=== PATIENT | male | born 1965 | race Caucasian/White ===

== ENCOUNTER 2016-12-30 14:05 | Emergency (ER) | payer BC ==
[2016-12-30] MEDS ORDERED: Sodium Chloride 0.9% 10 ML Syringe FLUSH PRN (14:18)
[2016-12-30] MEDS ORDERED: HYDROmorphone 1 MG/ML Syringe IVPUSH ONE (14:20)
[2016-12-30] MEDS ORDERED: Sodium Chloride 0.9% 1,000 ML IV ONE (14:20)
[2016-12-30] MEDS ORDERED: Ondansetron 4 MG/2 ML SDV IVPUSH ONE (14:20)
[2016-12-30 15:01] LABS: CHLORIDE,CL 101 mmol/L (98-107); SODIUM,NA 138 mmol/L (136-145)
[2016-12-30] MEDS ORDERED: Ertapenem 1 GM in Sodium Chloride 0.9% 100 ML IV ONE (16:35)
[2016-12-30 20:28] VITALS: BP 112/80
--- NOTE | 2017-01-02 09:42 | ER ---
Date of Service: 12/30/2016 HISTORY: Romero presents to the emergency room from [facility] with complaints of right lower quadrant abdominal pain. The patient states that he began experiencing this discomfort earlier today. He states that his appetite has been poor. He has vomited and has been quite nauseated. He was seen at [facility] by Paul Spaulding. At that facility, they did do a CBC, and the patient was found to have approximately 24,000 white count. The patient was subsequently sent to the emergency room for further evaluation and care. PAST MEDICAL HISTORY: 1. Hypertrophic obstructive cardiomyopathy. 2. Hypertension. 3. Dyslipidemia. MEDICATIONS: 1. Lipitor 10 mg at bedtime. 2. Toprol-XL 25 mg p.o. b.i.d. 3. Aspirin 81 mg daily. ALLERGIES: NKDA. REVIEW OF SYSTEMS: General: No fever, but the patient states that he does feel somewhat chilled. HEENT: No sore throat, rhinorrhea, or congestion. Respiratory: No shortness breath. Cardiac: Denies any substernal chest pain. No jaw, arm, neck, or back pain. GI: Please see history of present illness. Again, he complains of right lower quadrant abdominal pain, nausea and vomiting. Denies any melena, hematochezia, or hematemesis. : Denies any dysuria. Musculoskeletal: No myalgias or arthralgias. Neurologic: No fainting, blackouts, or lightheadedness. PHYSICAL EXAMINATION: General: This is a 51-year-old male patient. No acute distress. Vital Signs: Temperature is 37.6, heart rate is 68, blood pressure is 147/52, respiratory rate 16, O2 saturations 96%. Skin: Warm, pink, and dry. HEENT: Head is normocephalic and atraumatic. Mouth, oral mucosa is moist. Lungs: Clear to auscultation. Heart: Regular rate and rhythm. Normal S1, S2. No S3, S4, murmurs, clicks, or rubs. Abdomen: Soft. Tender in the right lower quadrant. He does have some mild guarding and rebound tenderness. There are no masses noted. There is no hepatosplenomegaly noted. Extremities: Without edema. His obturator sign is positive. Neurologic: Cranial nerves 2 through 12 are intact. His speech is fluent. His gait is within normal limits. LABORATORY DATA: PT is 10.9, INR is 1.0. CBC; I do not have the results of his CBC in front of me, but I know he did have an elevated white blood cell count, greater than 20,000 with a left shift. Please refer to attached documentation. Chemistry; sodium is 136, potassium is 4.7, chloride is 101, bicarb is 27, BUN is 15, creatinine is 1.0. GFR is greater than 60. Glucose is 134, calcium is 9.1, corrected calcium is 8.86. Total bilirubin is 0.9. AST is 36, ALT is 44, alkaline phosphatase is 96. C-reactive protein is 2.8, total protein is 7.9, albumin is 4.3. Urinalysis is obtained. Specific gravity is 1.030, pH was 5.5, did have a trace of protein, negative glucose, 80 ketones, moderate occult blood, small bilirubin, negative nitrites and leukocyte esterase. CT scan of the patient's abdomen and pelvis was obtained with IV contrast. He did have evidence of acute appendicitis with large appendicolith. There was some inflammatory change surrounding the appendix, but no evidence of any acute rupture. ASSESSMENT: Acute appendicitis. PLAN: The patient was started on Invanz 1 gram IV on obtaining CT results. He was also given Dilaudid 1 mg IV and Zofran 4 mg IV. The patient was also given normal saline 1000 mL IV. He was reporting significant improvement in his discomfort. He remained stable in my care in the emergency room. The patient will be transferred to [facility]. I did speak with Dr. Rios, the surgeon on-call at [place]. He accepts the patient in transfer. The patient will be transported by [facility] ground ambulance. The patient's was present during his care and was aware of the plan for today. All questions were answered. MWK: 12/30/2016 17:51:31 MODL: 12/30/2016 18:19:53 /[id number]
== END 2016-12-30 17:30 | disposition short-term general hospital (02) ==
LOC: VM.ED 14:05
DX: K35.80 Unspecified acute appendicitis (principal); I10 Essential (primary) hypertension
CPT/HCPCS: 80053; 81001; 82150; 85610; 86140; 96365; 96367; 96375; 99285; J1170; J1335; J2405; J7030; J7050

== ENCOUNTER 2020-03-26 06:26 | Day surgery (SDC) | payer BC, OTHER ==
[~2020-03-26 06:26] MED LIST: Sodium Chloride 0.9% 10 ML Syringe FLUSH PRN
[2020-03-26] MEDS ORDERED: Lactated Ringers 1,000 ML IV SCH (07:00)
[2020-03-26] MEDS ORDERED: Propofol 200 MG/20 ML SDV ONE ×2 (07:58→08:14)
[2020-03-26] MEDS ORDERED: fentaNYL 100 MCG/2 ML SDV ONE (07:58)
[2020-03-26] MEDS ORDERED: ePHEDrine 50 MG/ML SDV ONE (08:25)
[2020-03-26 09:06] VITALS: BP 122/59; PULSE 86
--- NOTE | 2020-03-27 09:42 | OR ---
DATE OF SURGERY: 03/26/2020. REFERRING PROVIDER: Kristel Bear DO PRE-OPERATIVE DIAGNOSES: History of colon polyps. Last colonoscopy was 08/2016. There is no known family history of colon cancer or significant colon polyps. POST-OPERATIVE DIAGNOSES: 1. 4 mm sessile polyp at 20 cm, removed with cold forceps using 3 bites. 2. Mild hemorrhoids with some mild irritation. 3. Normal-appearing distal ileum. PROCEDURE: Colonoscopy with polypectomy x1 using cold forceps. SURGEON: Eleazar Lazo M.D. ANESTHESIA: Monitored anesthesia care. BOWEL PREP: Good. Romero is a 54-year-old male who was brought to the endoscopy suite after discussing risks and benefits of the procedure. Informed consent was obtained for conscious sedation and colonoscopy with or without biopsy and/or polypectomy. We also discussed possibility of missed lesions. Pre-procedure exam was unremarkable. IV, oxygen, and monitors were placed. The patient was placed in the left lateral decubitus position. Sedation was administered and a digital rectal exam was performed and unremarkable. Colonoscope was passed into the rectum and slowly advanced all the way to the cecum. Cecum was viewed and photographed. Ileocecal valve was intubated and terminal ileum was normal in appearance. Colonoscope was slowly withdrawn and mucosa closely observed in direct circumferential manner. The ascending colon was unremarkable. The transverse colon was unremarkable. The descending colon was unremarkable. The sigmoid colon revealed 4 mm sessile polyp at 20 cm, removed with 3 bites of the cold forceps. Retroflexion was performed and rectal mucosa was remarkable for some mild hemorrhoids with mild irritation. There was no active bleeding of the hemorrhoids. Scope was removed. The patient tolerated the procedure well. The patient was monitored until that baseline status. Discharge instructions were reviewed and the patient was discharged in good condition. COMPLICATIONS: None. TOTAL TIME: 15 minutes. ESTIMATED BLOOD LOSS: Less than 1 mL. RECOMMENDATIONS/FOLLOW-UP: We will await results of path report to determine ideal followup interval. We will have him hold his aspirin for 3 days to limit any chance of bleeding from the polypectomy site. I would like to kindly thank Kristel Bear for this referral. DMB: 03/26/2020 11:10:47 MODL: 03/26/2020 16:59:09 /[id number]
== END 2020-03-26 10:00 | disposition home or self-care (01) ==
LOC: VM.SDS 06:26
PROVIDERS: ATTEND Family Medicine
DX: Z12.11 Encounter for screening for malignant neoplasm of colon (principal); K63.5 Polyp of colon; K64.9 Unspecified hemorrhoids; E78.00 Pure hypercholesterolemia, unspecified; I10 Essential (primary) hypertension; I42.1 Obstructive hypertrophic cardiomyopathy; E11.9 Type 2 diabetes mellitus without complications; E66.9 Obesity, unspecified; G47.33 Obstructive sleep apnea (adult) (pediatric); E78.5 Hyperlipidemia, unspecified; I25.2 Old myocardial infarction; Z11.59 Encounter for screening for other viral diseases; Z86.010 Personal history of colon polyps; Z79.899 Other long term (current) drug therapy; Z79.82 Long term (current) use of aspirin; Z90.89 Acquired absence of other organs; Z82.49 Family history of ischemic heart disease and other diseases of the circulatory system; Z79.02 Long term (current) use of antithrombotics/antiplatelets; Z68.30 Body mass index [BMI] 30.0-30.9, adult
CPT/HCPCS: 00811; 45380; 87635; J2704; J3010; J7120; U0002

== ENCOUNTER 2023-09-07 09:57 | Emergency (ER) | payer BC ==
[2023-09-07 10:42] LABS: EOSINOPHILS ABSOLUTE AUTO 0.1 x10^3/uL (0.0-0.5); EOSINOPHILS PERCENT AUTO 1.3 % (0.0-4.0); HEMATOCRIT 42.8 % (40.0-52.0); HEMOGLOBIN 14.4 g/dL (14.0-18.0); IMMATURE GRAN ABSOLUTE AUTO 0.04 x10^3/uL (0.00-0.07); LYMPHOCYTES ABSOLUTE AUTO 1.6 x10^3/uL (1.0-4.8); LYMPHOCYTES PERCENT AUTO 14.6 % (25.0-50.0); MEAN CORPUSCULAR HEMOGLOBIN 30.8 pg (26.0-32.0); MEAN CORPUSCULAR HGB CONC 33.6 g/dL (32.0-36.0); MEAN CORPUSCULAR VOLUME 91.6 fL (78.0-93.0); MONOCYTES ABSOLUTE AUTO 0.6 x10^3/uL (0.0-0.8); MONOCYTES PERCENT AUTO 5.8 % (2.0-11.0); NEUTROPHILS ABSOLUTE AUTO 8.5 x10^3/uL (1.8-7.7); NEUTROPHILS PERCENT AUTO 77.9 % (50.0-80.0); PLATELET COUNT,PLT 206 x10^3/uL (130-400); RED BLOOD CELL COUNT 4.67 x10^6/uL (4.5-6.0); WHITE BLOOD CELL COUNT,WBC 10.9 x10^3/uL (4.0-10.0)
[2023-09-07 11:05] LABS: ALANINE AMINOTRANSFERASE,ALT 63 U/L (16-63); ALBUMIN 3.7 g/dL (3.4-5.0); ALKALINE PHOSPHATASE 90 U/L (46-116); ASPARTATE AMNIOTRANSFERASE,AST 45 U/L (15-37); BILIRUBIN TOTAL 0.9 mg/dL (0.2-1.0); BLOOD UREA NITROGEN,BUN 18 mg/dL (7-18); CALCIUM 9.1 mg/dL (8.5-10.1); CARBON DIOXIDE,CO2 26 mmol/L (21-32); CHLORIDE,CL 105 mmol/L (98-107); CREATININE 1.2 mg/dL (0.70-1.30); GLUCOSE RANDOM 140 mg/dL (70-99); POTASSIUM,K 4.5 mmol/L (3.5-5.1); PROTEIN TOTAL,TP 7.4 g/dL (6.4-8.2); SODIUM,NA 142 mmol/L (136-145)
[2023-09-07 11:06] LABS: ANION GAP 15.5 mmol/L (5-15); ESTIMATED GFR 70 mL/min (>=60)
[2023-09-07 16:32] VITALS: BP 126/67; PULSE 68
== END 2023-09-07 11:21 | disposition home or self-care (01) ==
LOC: VM.ED 09:57
DX: R00.2 Palpitations (principal); I10 Essential (primary) hypertension; I25.2 Old myocardial infarction; E78.00 Pure hypercholesterolemia, unspecified; E11.9 Type 2 diabetes mellitus without complications; Z90.49 Acquired absence of other specified parts of digestive tract; Z79.899 Other long term (current) drug therapy
CPT/HCPCS: 36415; 80053; 84484; 85025; 93005; 99284

== ENCOUNTER 2025-08-15 06:48 | Day surgery (SDC) | payer BC ==
[2025-08-15] MEDS: Lactated Ringers 1,000 ML IV SCH (07:01)
[2025-08-15 07:16] LABS: GLUCOSE,POC 137 mg/dL (70-99)
[2025-08-15] MEDS ORDERED: fentaNYL 100 MCG/2 ML SDV ONE (07:44)
[2025-08-15] MEDS ORDERED: Propofol 200 MG/20 ML SDV ONE (07:44)
[2025-08-15 09:38] VITALS: BP 115/69; PULSE 65
== END 2025-08-15 09:56 | disposition home or self-care (01) ==
LOC: VM.SDS 06:48
PROVIDERS: ATTEND Student in an Organized Health Care Education/Training Program
DX: Z12.11 Encounter for screening for malignant neoplasm of colon (principal); I10 Essential (primary) hypertension; E11.9 Type 2 diabetes mellitus without complications; E66.01 Morbid (severe) obesity due to excess calories; Z79.01 Long term (current) use of anticoagulants; Z79.84 Long term (current) use of oral hypoglycemic drugs; Z79.899 Other long term (current) drug therapy; Z86.0101 Personal history of adenomatous and serrated colon polyps
CPT/HCPCS: 00811; 82947; J2704; J3010; J7120